=== PATIENT | male | born 1995 | race Caucasian/White ===

== ENCOUNTER 2017-06-26 16:17 | Emergency (ER) | payer BC, OTHER ==
[~2017-06-26] VITALS: Ht 154.9 cm; Wt 68.0 kg
[2017-06-26 16:22] VITALS: Ht 154.9 cm; Wt 68.0 kg
--- NOTE | 2017-06-26 18:37 | RADRPT ---
PROCEDURE: XR Right Foot. CLINICAL INDICATION: Right foot pain. The patient stepped on a screw 15 days ago. TECHNIQUE: 3 views. Frontal, lateral, and oblique. COMPARISON: None. FINDINGS: There is no fracture or dislocation. There is soft tissue swelling medially. Articular surfaces are intact. There is no lytic or blastic lesion. There is no radiopaque foreign body. IMPRESSION: 1. Soft tissue swelling medially. 2. No radiopaque foreign body. 3. Otherwise unremarkable images of the right foot. RPTAT: QQ .Josep Garcia MD, MD Date Time Electronically viewed and signed by .Josep Garcia MD, on 06/26/2017 18:37 .R/
[2017-06-26] MEDS ORDERED: IBUP-1542 PO (19:08)
[2017-06-26 19:37] VITALS: BP 121/66; PULSE 71; RESP 18; TEMP 98.6
--- NOTE | 2017-06-26 19:47 | ERD ---
ER Documentation Chief Complaint Date/Time DATE: 06/26/17 TIME: 19:35 Chief Complaint pt bib self with c/o screws in right foot, here for recheck HPI 22-year-old male presents to ED complaining of pain in his right foot. He said that he drove a screw into the medial arch of his right foot approximately 15 days ago. He clinic immediately after, and received a shot in his arm and that time. Did not get any p.o. medication. Patient stated that he still has pain when he is walking. But no pain when he is sitting. Denies fever or chills. ROS All systems reviewed and are negative except as per history of present illness. Medications Home Meds Active Scripts Ibuprofen* (Motrin*) 600 Mg Tab, 600 MG PO Q6H Y for PAIN AND OR ELEVATED TEMP, #30 TAB Prov:ELIOMICHELLE X. [employer] 06/26/17 Allergies Allergies: Coded Allergies: No Known Allergy (Unverified , 06/26/17) PMhx/Soc Medical and Surgical Hx: pt denies Medical Hx, pt denies Surgical Hx Hx Alcohol Use: No Hx Substance Use: No Hx Tobacco Use: No Smoking Status: Unknown if ever smoked Physical Exam Physical Exam General: Well-developed, well-nourished, conscious and coherent, in no distress Skin: Warm and dry without rash, good texture and turgor Head: Normocephalic without evidence of trauma Eyes: Sclera and conjunctivae normal; pupils equal, round, and reactive to light; extraocular movements are intact Chest: Normal AP diameter. Good expansion without retractions. Nontender. Lungs are clear to auscultate bilaterally with good tidal volume Heart: Regular rate and rhythm. No murmur, rub, or gallops heard Extremities: Full range of motion. Good strength bilaterally. No clubbing, cyanosis, or edema. Peripheral pulses are intact. Sensation intact. A healing scab noted on the medial right foot, with mild swelling, no erythema. Neuro: Alert and oriented 4, GCS 15. Cranial nerves grossly intact. Motor and sensory exams nonfocal. Moves all extremities. Speech clear. Gait normal Results 24 hrs PROCEDURE: XR Right Foot. CLINICAL INDICATION: Right foot pain. The patient stepped on a screw 15 days ago. TECHNIQUE: 3 views. Frontal, lateral, and oblique. COMPARISON: None. FINDINGS: There is no fracture or dislocation. There is soft tissue swelling medially. Articular surfaces are intact. There is no lytic or blastic lesion. There is no radiopaque foreign body. IMPRESSION: 1. Soft tissue swelling medially. 2. No radiopaque foreign body. 3. Otherwise unremarkable images of the right foot. RPTAT: QQ .Josep Garcia MD, MD Date Time Electronically viewed and signed by .Josep Garcia MD, on 06/26/2017 18:37 .R/ CC: MICHELLE BALLARD. [employer] Procedures/MDM Well-appearing 22-year-old male present ED after a puncture wound to his right foot approximately 15 days ago. X-ray right foot is negative for any osseous abnormalities. No radiopaque foreign body is noted. Patient's presentation showed healing puncture wound, without any sign of cellulitis or abscess. He is reassured and advised follow-up with PCP. Patient appears well, stable for discharge and outpatient management. Medical decision making shared with patient and family. Education provided to patient and family. Patient and family expressed understanding of the plan. Medications on discharge: Ibuprofen. Follow-up: Primary care provider in 2-3 days or return to ED if worse. Disclaimer: Inadvertent spelling and grammatical errors are likely due to EHR/ dictation software use and do not reflect on the overall quality of patient care. Also, please note that the electronic time recorded on this note does not necessarily reflect the actual time of the patient encounter. Departure Diagnosis: Primary Impression: Puncture wound of foot, right Encounter type: initial encounter Qualified Code: S91.331A - Puncture wound of right foot, initial encounter Condition: Stable Patient Instructions: Puncture Wound, Foot [facility] Usted se jensen hecho un examen mdico de control que le indica que no est en nati condicin que requiera tratamiento urgente en el Departamento de Emergencia. Un estudio ms profundo y el tratamiento de garcia condicin pueden esperar sin ningn riesgo hasta que usted sea atendida/o en el consultorio de garcia mdico o nati cl uziel. Es responsabilidad suya arreglar nati matthew para el seguimiento del yasir. MANEJO DE CONDICIONES NO URGENTES EN EL FUTURO 1) Si usted tiene un mdico de atencin primaria: Usted debera llamar a garcia mdico de atencin primaria antes de venir al departamento de emergencia. Despus de las horas de consultorio, garcia doctor o garcia asociado/a est disponible por telfono. El mdico o enfermero de natalie en el servicio telefnico puede asesorarle por lexus medio para atender el problema, o yasir contrario se puede programar nati matthew. 2) Si usted no tiene un mdico de atencin primaria: Llame al mdico o clnica de referencia que aparece abajo cleopatra las horas de consultorio para hacer nati matthew para que le vean. CLINICAS: [facility] [phone] [facility] [phone] [facility]. [facility] [phone] [facility]. [place] [phone] [facility]. [place] [phone] [facility]. [phone] [address] Additional Instructions: Llame al doctor nombrado abajo (Referral Sources) MAANA y mary nati MATTHEW PARA DENTRO DE NATI SEMANA. Dgale a la secretaria que nosotros le instruimos hacer esta matthew.Avise o llame si garcia condicin se empeora antes de la matthew. MICHELLE BALLARD NP Jun 26, 2017 19:46
== END 2017-06-26 19:38 | disposition home or self-care (01) ==
LOC: FTE 16:17
DX: S91.331A Puncture wound without foreign body, right foot, initial encounter (principal); W26.8XXA Contact with other sharp object(s), not elsewhere classified, initial encounter; Y92.9 Unspecified place or not applicable
CPT/HCPCS: 73630; Z7502